=== PATIENT | male | born 2000 | race Two or more races ===

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

== ENCOUNTER 2019-03-07 21:38 | Emergency (ER) | payer MEDICAID ==
[~2019-03-07] VITALS: Ht 180.3 cm; Wt 71.7 kg
[2019-03-07 22:15] VITALS: BP 129/83
== END 2019-03-08 03:10 | disposition left against medical advice (07) ==
LOC: ER 21:40
DX: J02.9 Acute pharyngitis, unspecified (principal); Z53.21 Procedure and treatment not carried out due to patient leaving prior to being seen by health care provider